=== PATIENT | male | born 1985 | race Caucasian/White ===

== ENCOUNTER 2021-06-18 17:02 | Emergency (ER) | payer OTHER ==
[2021-06-18 19:37] LABS: HEMOGLOBIN 14.9 gm/dl (14.0-17.5); RED BLOOD COUNT 4.36 M/UL (4.20-5.50)
[2021-06-18 20:02] LABS: BUN/CREATININE RATIO 17 (0-10)
== END 2021-06-18 22:00 | disposition home or self-care (01) ==
LOC: ER1 17:02
PROVIDERS: Nurse Practitioner
DX: R07.89 Other chest pain (principal); F17.210 Nicotine dependence, cigarettes, uncomplicated
CPT/HCPCS: 71045; 80048; 82550; 82553; 83735; 83874; 84439; 84443; 84484; 85025; 93005; 99285